=== PATIENT | male | born 2000 | race Caucasian/White ===

== ENCOUNTER 2025-01-18 00:47 | Emergency (ER) | payer OTHER ==
[~2025-01-18] VITALS: Ht 185.4 cm; Wt 71.8 kg
--- NOTE | 2025-01-18 01:00 | ELECTROCARDIOGRAPH REPORT ---
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
--- NOTE | 2025-01-18 01:27 | Physician Documentation ---
History of Present Illness ~ Chief Complaint: Chest Wall Pain Stated Complaint: CHEST PRESSURE Time Seen by MD: 01:02 HPI Patient presents to the emergency room for evaluation of left-sided chest pain. He is bending over to pick something up when symptoms occurred. Symptoms lasted approximately 15 seconds and radiating into his left arm before spontaneously resolving. He currently has no symptoms. He does have history of aortic stenosis and he is working with his cell reliner regarding definitive management. No syncope reported. No one-sided leg pain reported. He does not smoke denies first-degree relative with heart disease and denies history of blood pressure cholesterol or diabetes. Medication Reconciliation Allergies: Coded Allergies: No Known Allergies (Unverified , 01/18/25) Review of Systems ROS All review of systems negative except as per HPI Physical Exam Vital Signs: Temperature: 97.6, Source: Oral, Heart Rate: 111, Respiratory Rate: 17, BP: 150/84, Pulse Oximetry: 100, Weight: 71.800 Physical Exam General: Patient is awake, alert, oriented x4 in no acute distress and well appearing.~ Head: Normocephalic and atraumatic. Eyes: Conjunctival normal. EOMI. PERRL. ENT: Mucous membranes moist. Neck: Supple, trachea is midline. Chest: Clear to auscultation bilaterally without rales, rhonchi, or wheezes. There is no accessory muscle use or retractions. Cardiac: Heart rate 96 and regular without murmurs, gallops, or rubs. Abd: Soft, nondistended, nontender, with normoactive bowel sounds. No guarding, rebound, or rigidity. Extremities: Normal strength. Normal range of motion. No deformities or edema. No calf tenderness to palpation Progress Results/Orders Results/Orders Completed Orders - TITO SALMON MD Electrocardiogram (01/18/25 00:54) Vital Signs 01/18/25 01/18/25 00:50 01:01 Temp 97.6 97.6 Pulse 113 111 Resp 15 17 B/P (MAP) 164/93 150/84 (106) Pulse Ox 99 100 EKG/XRAY/CT/US/VASC/MRI EKG : Additional Comment EKG interpreted by myself shows time of 0059, rate 111, sinus tachycardia, normal axis, nonspecific ST-T changes Medical Decision Making Findings Patient presents to the emergency room with chest pain as per HPI. Differentials include but are not limited to ACS, musculoskeletal pain, pneumothorax, aortic pathology, pulmonary embolism. EKG performed which did show some nonspecific changes. Patient's heart rate went I am not in the room is 94 however when I enter the room goes up to proximally 110. He does endorse anxiety. Saturating 100% on room air. No calf tenderness to palpation along with stable vitals when I am not in the room and currently not experiencing any symptoms I do not feel patient was suffering from pulmonary embolism. I do not feel patient requires a chest x-ray as he is asymptomatic and denies shortness of breath ultimately the patient is very low risk given his age and lack of risk factors. Possibility of intermittent arrhythmia. He has a cell reliner and he has been instructed to follow up with his cell reliner. ER precautions discussed Departure Disposition: 01 HOME / SELF CARE / HOMELESS Impression: Primary Impression: Chest pain Condition: Stable Discharge Instructions: Nonspecific Chest Pain, Adult Referrals: NO PRIMARY CARE PROVIDER (PCP) Signature Scribe Signature: No scribe Attestation: The note accurately reflects work and decisions made by me.Tito Salmon MD 01/18/25 01:27 TITO SALMON MD Jan 18, 2025 01:27
[2025-01-18 01:41] VITALS: BP 130/82; PULSE 110; RESP 19; TEMP 97.6; O2SAT 100
== END 2025-01-18 01:36 | disposition home or self-care (01) ==
LOC: ER 00:48
DX: R07.89 Other chest pain (principal)
CPT/HCPCS: 93005; 99283

== ENCOUNTER 2025-04-18 08:50 | Outpatient (CLI) | payer OTHER ==
[2025-04-18] MEDS ORDERED: IODIXANOL 320 MG/ML INFUS..BTL 100ML IV ONE (08:52)
[2025-04-18 09:20] LABS: MEAN PLATELET VOLUME 9.6 FL (7.4-10.4); RED CELL DISTRIBUTION WIDTH 13.3 % (11.5-14.5)
[2025-04-18 09:38] LABS: CREATININE 0.81 MG/DL (0.60-1.10); PRO BRAIN NATRIURETIC PEPTIDE < 30 PG/ML (0-125); TOTAL CARBON DIOXIDE 29.0 MMOL/L (24-32); eGFR > 90 ML/MIN
--- NOTE | 2025-04-19 14:19 | RADIOLOGY REPORT ---
CT CTA TAVR INDICATION: Shortness of breath, stenosis TECHNIQUE: Gated CT angiography of the heart was performed along with CT angiography of the lower neck, chest, abdomen, and pelvis. MIP, MPR, and 3-D images were obtained. Measurements were performed on the [employer] workstation. All CT scans at this facility use dose modulation, iterative reconstruction, and/or weight based dosing when appropriate to reduce radiation dose to as low as reasonably achievable. COMPARISON: None FINDINGS: ANNULAR PLANE DISTANCE: 27.2 x 23.5 mm AREA: 4.82 cm2 AVERAGE DIAMETER: 25.35 mm PERIMETER: 79.1 mm LEFT CORONARY ARTERY HEIGHT ABOVE ANNULAR PLANE: 17.3 mm RIGHT CORONARY ARTERY HEIGHT ABOVE ANNULAR PLANE: 14.3 mm LEFT CORONARY SINUS DIAMETER: 29 mm RIGHT CORONARY SINUS DIAMETER: 35.9 mm NONCORONARY CORONARY SINUS DIAMETER: 32 mm SINOTUBULAR JUNCTION DIAMETER: 27.6 mm RIGHT COMMON ILIAC ARTERY MINIMAL DIMENSIONS: 8.67 mm RIGHT EXTERNAL ILIAC ARTERY MINIMAL DIMENSIONS: 7.25 mm RIGHT COMMON FEMORAL ARTERY MINIMAL DIMENSIONS: 7.8 mm LEFT COMMON ILIAC ARTERY MINIMAL DIMENSIONS: 8.44 mm LEFT EXTERNAL ILIAC ARTERY MINIMAL DIMENSIONS: 8.72 mm LEFT COMMON FEMORAL ARTERY MINIMAL DIMENSIONS: 7.98 mm [LOWER NECK]: Unremarkable [LYMPH NODES/MEDIASTINUM]: No abnormal lymph nodes by CT size criteria [CARDIOVASCULAR]: Normal cardiac size. No pericardial effusion. No aneurysmal dilatation of the great vessels. No significant coronary artery calcifications. Abnormal thickening of the aortic valve. [LUNG PARENCHYMA/PLEURAL SPACE]: No consolidation, suspicious focal airspace opacity, or suspicious nodules. No pleural effusion or pneumothorax. [CHEST WALL]: Unremarkable. [LIVER]: Normal hepatic size without suspicious focal lesion. [SPLEEN]: Unremarkable. [PANCREAS]: Unremarkable. [GALLBLADDER AND BILIARY TREE]: No cholelithiasis. No biliary dilatation. [ADRENAL GLANDS]: Unremarkable [KIDNEYS]: No hydronephrosis. No nephroureterolithiasis. [BLADDER]: Unremarkable for the degree distention. [PELVIC ORGANS]: Unremarkable. [BOWEL/MESENTERY]: Stomach is normal. No CT evidence of bowel obstruction. Normal appendix. [ASCITES]: Absent [LYMPHADENOPATHY]: No pathologically enlarged lymph nodes by CT size criteria [VASCULATURE]: Vascular calcifications. [ABDOMINAL WALL]: Unremarkable. [MUSCULOSKELETAL]: No acute fracture or aggressive focal osseous lesion. IMPRESSION: 1. Calculations for TAVR evaluation as above.
== END 2025-04-18 23:59 | disposition home or self-care (01) ==
LOC: RAD 08:50
PROVIDERS: ATTEND Internal Medicine Cardiovascular Disease
DX: R06.02 Shortness of breath (principal); I65.29 Occlusion and stenosis of unspecified carotid artery; I35.0 Nonrheumatic aortic (valve) stenosis
CPT/HCPCS: 36415; 71275; 74174; 75572; 80053; 83880; 85025; Q9967